=== PATIENT | female | born 1940 | race Caucasian/White ===

== ENCOUNTER 2017-10-31 10:45 | Observation (INO) | payer OTHER ==
[~2017-10-31] VITALS: Ht 160 cm; Wt 50.5 kg
[2017-10-31] MEDS ORDERED: SODIUM CHLORIDE 0.9% 1000ML 1,000 ML IV STA (10:56)
[2017-10-31 11:30] LABS: BASOPHILS % 0.6 % (0.0-1.0); EOSINOPHILS # (AUTO) 0.1 (0.0-0.4); EOSINOPHILS % 1.4 % (0.0-6.0); HEMATOCRIT 39.8 % (34.2-44.1); HEMOGLOBIN 13.1 g/dL (12.0-16.0); LYMPHOCYTES # (AUTO) 2.1 (1.0-3.2); LYMPHOCYTES % 40.3 % (18.0-39.1); MEAN CORPUSCULAR HEMOGLOBIN 28.5 pg (28-32); MEAN CORPUSCULAR HGB CONC 32.9 g/dL (31-35); MEAN CORPUSCULAR VOLUME 86.7 fL (81-99); MONOCYTES # (AUTO) 0.6 (0.2-0.8); MONOCYTES % 11.7 % (4.4-11.3); NEUTROPHILS # (AUTO) 2.3 (2.1-6.9); NEUTROPHILS % 45.8 % (38.7-80.0); PLATELET COUNT 196 x10e3/uL (140-360); RED BLOOD COUNT 4.59 x10e6/uL (3.6-5.1); RED CELL DISTRIBUTION WIDTH 13.7 % (11.7-14.4)
--- NOTE | 2017-10-31 11:33 | Diagnostic Imaging Report ---
PROCEDURE:CHEST SINGLE (PORTABLE) TECHNIQUE:Portable AP chest INDICATION:Weakness COMPARISON:None. FINDINGS: Symmetric hyperinflation. Architectural changes in the upper lobes bilaterally. No focal airspace disease. No pleural effusions. Normal heart size. Calcification of the aortic arch. Intact skeleton. CONCLUSION: Findings of emphysema. No evidence of pneumonia. Dictated by: Tunde Patel M.D. on 10/31/2017 at 11:34 Electronically approved by: Tunde Patel M.D. on 10/31/2017 at 11:34
[2017-10-31 11:42] LABS: ALANINE AMINOTRANSFERASE 20 IU/L (0-55); ALBUMIN 2.9 g/dL (3.5-5.0); ALBUMIN/GLOBULIN RATIO 0.8 (0.8-2.0); ALKALINE PHOSPHATASE 56 IU/L (40-150); BLOOD UREA NITROGEN 24 mg/dL (7-26); BUN/CREATININE RATIO 38 (6-25); CALCIUM 9.2 mg/dL (8.4-10.2); CARBON DIOXIDE 31 mmol/L (22-29); CHLORIDE 100 mmol/L (98-107); CREATINE KINASE 39 IU/L (29-168); CREATININE, SERUM 0.64 mg/dL (0.57-1.11); EST GLOMERULAR FILTRATION RATE > 60 ML/MIN (60-); GLUCOSE 118 mg/dL (74-118); SODIUM 139 mmol/L (136-145)
[2017-10-31 11:58] LABS: BACTERIA,URINE MANY /HPF; BILIRUBIN,URINE NEGATIVE (NEGATIVE); CLARITY,URINE CLOUDY (CLEAR); COLOR,URINE YELLOW (YELLOW); EPITHELIAL CELLS,URINE FEW /LPF; KETONES,URINE NEGATIVE (NEGATIVE); LEUKOCYTE ESTERASE ,URINE 1+ (NEGATIVE); NITRITE,URINE POSITIVE (NEGATIVE); PROTEIN,URINE DIPSTICK NEGATIVE (NEGATIVE); RBC,URINE 0-5 /HPF (0-5); URINE UROBILINOGEN 0.2 mg/dL (0.2 - 1)
[2017-10-31 12:03] LABS: THYROID STIMULATING HORMONE 2.074 uIU/mL (0.350-4.940)
[2017-10-31] MEDS ORDERED: CEFTRIAXONE SOD 1 GM VIAL IV SCH (12:30)
[2017-10-31] MEDS ORDERED: POTASSIUM CHLORIDE IV SCH (12:46)
[2017-10-31] MEDS ORDERED: SODIUM CHLORIDE 0.9% IV SCH (12:46)
[2017-10-31] MEDS ORDERED: ONDANSETRON HCL INJ 2 MG/ML VIAL IV PRN (13:00)
[2017-10-31] MEDS ORDERED: ONDANSETRON HCL 4 MG ORAL DISINTEGRATING TAB SL PRN (13:00)
--- OUTSIDE RECORDS SUMMARY | 2017-10-31 13:16 | XMS REPORT ---
Author [facility] Address Unknown Phone Unavailable Care Team Providers Care Environmental Technology Professor Name Role Phone SHAHZAD SHANNON Unavailable Unavailable Problems This patient has no known problems. Allergies, Adverse Reactions, Alerts This patient has no known allergies or adverse reactions. Medications This patient has no known medications. Results Test Description Test Time Test Comments Text Results Atomic Results Result Comments CHEST SINGLE (PORTABLE) [place] [address] Patient Name: MAMTA PATEL MR #: [id number] : 1940 Age/Sex: 77/F Req #: [id number] Adm Physician: Ordered by: SHAHZAD SHANNON MD Report #: [id number] Location: ER Room/Bed: Procedure: [id number] DX/CHEST SINGLE (PORTABLE) Exam Date: 10/31/17 Exam Time: 1100 REPORT STATUS: Signed PROCEDURE: CHEST SINGLE (PORTABLE) TECHNIQUE: Portable AP chest INDICATION: Weakness COMPARISON: None. FINDINGS: Symmetric hyperinflation. Architectural changes in the upper lobes bilaterally. No focal airspace disease. No pleural effusions. Normal heart size. Calcification of the aortic arch. Intact skeleton. CONCLUSION: Findings of emphysema. No evidence of pneumonia. Dictated by: May Patel M.D. on at 11:34 Electronically approved by: May Patel M.D. on 10/31/2017 at 11:34 Dictated By: MAY PATEL MD [id number] Transcribed By: ADRIANA on 10/31/17 1134 COPY TO: SHAHZAD SHANNON MD
[2017-10-31] MEDS: KCL 20MEQ/.9 SOD CHL 1,000 ML IV SCH (15:08)
[2017-10-31] MEDS ORDERED: POTASSIUM CHLORIDE 20 MEQ TAB CR PO STA (15:37)
[2017-10-31 16:30] VITALS: BP 115/74
[2017-10-31 17:37] VITALS: BP 105/47
[2017-10-31] MEDS: ACETAMINOPHEN 325 MG TAB PO PRN (19:24)
[2017-10-31 19:34] VITALS: BP 105/47
[2017-10-31 19:35] VITALS: BP 108/50
[2017-10-31] MEDS ORDERED: SERTRALINE HCL100 MG PO (19:41)
[2017-10-31] MEDS ORDERED: NORCO 7.5-3251 EACH PO (19:41)
[2017-10-31] MEDS ORDERED: HYDROCHLOROTHIA25 MG (19:41)
[2017-10-31] MEDS ORDERED: LEVOTHYROXINE75 MCG PO (19:41)
[2017-10-31] MEDS ORDERED: LISINOPRIL10 MG PO (19:41)
[2017-11-01] MEDS: KCL 20MEQ/.9 SOD CHL 1,000 ML IV SCH ×2 (01:09→04:30)
[2017-11-01 01:15] VITALS: BP 119/56
[2017-11-01] MEDS: ACETAMINOPHEN 325 MG TAB PO PRN (04:25)
[2017-11-01 04:50] VITALS: BP 130/62
[2017-11-01 06:54] LABS: BASOPHILS % 0.2 % (0.0-1.0); EOSINOPHILS # (AUTO) 0.1 (0.0-0.4); EOSINOPHILS % 1.9 % (0.0-6.0); HEMATOCRIT 36.8 % (34.2-44.1); HEMOGLOBIN 11.9 g/dL (12.0-16.0); LYMPHOCYTES # (AUTO) 2.1 (1.0-3.2); LYMPHOCYTES % 43.9 % (18.0-39.1); MEAN CORPUSCULAR HEMOGLOBIN 28.5 pg (28-32); MEAN CORPUSCULAR HGB CONC 32.3 g/dL (31-35); MONOCYTES # (AUTO) 0.6 (0.2-0.8); MONOCYTES % 11.8 % (4.4-11.3); PLATELET COUNT 200 x10e3/uL (140-360); RED BLOOD COUNT 4.18 x10e6/uL (3.6-5.1); RED CELL DISTRIBUTION WIDTH 13.7 % (11.7-14.4)
[2017-11-01 07:05] LABS: ANION GAP 8.7 mmol/L (8-16); BLOOD UREA NITROGEN 13 mg/dL (7-26); BUN/CREATININE RATIO 24 (6-25); CALCIUM 8.6 mg/dL (8.4-10.2); CARBON DIOXIDE 28 mmol/L (22-29); CHLORIDE 105 mmol/L (98-107); CREATININE, SERUM 0.55 mg/dL (0.57-1.11); EST GLOMERULAR FILTRATION RATE > 60 ML/MIN (60-); GLUCOSE 98 mg/dL (74-118); POTASSIUM 3.7 mmol/L (3.5-5.1); SODIUM 138 mmol/L (136-145)
[2017-11-01 07:30] VITALS: BP 115/59
[2017-11-01] MEDS ORDERED: CEFTRIAXONE SOD 1 GM VIAL IV SCH (09:00)
[2017-11-01 09:53] VITALS: BP 115/59
[2017-11-01] MEDS ORDERED: MAGNESIUM SULFATE 2GM/50ML 50 ML IV ONE (10:15)
[2017-11-01 11:24] VITALS: BP 134/65
[2017-11-01] MEDS ORDERED: CEFTRIAXONE SOD 1 GM VIAL IM ONE (15:00)
[2017-11-01 15:24] VITALS: BP 126/59
== END 2017-11-01 17:42 | disposition home or self-care (01) ==
LOC: ER 10:45 → ERHOLD 13:13 → IMCU 15:35
PROVIDERS: ADMIT Internal Medicine; ATTEND Internal Medicine
DX: E87.6 Hypokalemia (principal); J44.9 Chronic obstructive pulmonary disease, unspecified; R55 Syncope and collapse; N10 Acute pyelonephritis; E86.0 Dehydration; E03.9 Hypothyroidism, unspecified; J06.9 Acute upper respiratory infection, unspecified; E83.42 Hypomagnesemia
CPT/HCPCS: 36415 ×2; 71045; 80048; 80053; 81001; 82550; 82553; 83735; 84443; 84484; 85025 ×2; 87040; 87086; 87186; 87400; 93005; 99284; G0378 ×2; J0696 ×2; J7030

== ENCOUNTER 2022-08-07 10:35 | Emergency (ER) | payer OTHER ==
[~2022-08-07] VITALS: Ht 160 cm; Wt 50.3 kg
[~2022-08-07 10:35] MED LIST: HYDROCHLOROTHIA25 MG; LEVOTHYROXINE75 MCG PO; LISINOPRIL10 MG PO; NORCO 7.5-3251 EACH PO; SERTRALINE HCL100 MG PO
[2022-08-07] MEDS ORDERED: HYDRALAZINE HCL 20 MG/ML VIAL IV STA (10:48)
[2022-08-07] MEDS ORDERED: CRESTOR10 MG PO (10:57)
[2022-08-07] MEDS ORDERED: METOPROLOL TART25 MG PO (10:57)
[2022-08-07] MEDS ORDERED: TRAZODONE HCL50 MG PO (10:57)
[2022-08-07 11:16] LABS: BASOPHILS % 0.4 % (0.0-1.0); EOSINOPHILS # (AUTO) 0.1 (0.0-0.4); EOSINOPHILS % 1.2 % (0.0-6.0); HEMATOCRIT 52.3 % (34.2-44.1); LYMPHOCYTES # (AUTO) 1.6 (1.0-3.2); MEAN CORPUSCULAR HEMOGLOBIN 28.4 pg (28-32); MEAN CORPUSCULAR HGB CONC 28.7 g/dL (31-35); MEAN CORPUSCULAR VOLUME 99.1 fL (81-99); MONOCYTES # (AUTO) 0.6 (0.2-0.8); MONOCYTES % 7.7 % (4.4-11.3); NEUTROPHILS # (AUTO) 5.3 (2.1-6.9); NEUTROPHILS % 69.4 % (38.7-80.0); PLATELET COUNT 244 x10e3/uL (140-360); RED BLOOD COUNT 5.28 x10e6/uL (3.6-5.1); RED CELL DISTRIBUTION WIDTH 13.1 % (11.7-14.4)
[2022-08-07 11:31] LABS: ANION GAP 15.5 mmol/L (8-16); CALCIUM 10.5 mg/dL (8.4-10.2); CREATININE, SERUM 0.62 mg/dL (0.57-1.11); POTASSIUM 4.5 mmol/L (3.5-5.1)
[2022-08-07 11:47] LABS: FREE THYROXINE INDEX 2.3702 (1.4-3.8); THYROID STIMULATING HORMONE 4.243 uIU/mL (0.350-4.940)
[2022-08-07] MEDS ORDERED: AMLODIPINE BESYL5 MG PO (12:18)
== END 2022-08-07 12:24 | disposition home or self-care (01) ==
LOC: ER 10:38
DX: R06.02 Shortness of breath (principal); R00.2 Palpitations; I10 Essential (primary) hypertension; E03.9 Hypothyroidism, unspecified; F32.A Depression, unspecified; R94.31 Abnormal electrocardiogram [ECG] [EKG]; Z20.822 Contact with and (suspected) exposure to COVID-19
CPT/HCPCS: 36415; 71045; 80053; 83880; 84436; 84443; 84479; 84484; 85025; 93005; 99284; J0360; U0002

== ENCOUNTER 2024-02-23 03:44 | Inpatient (IN) | payer MEDICARE, OTHER ==
[~2024-02-23] VITALS: Ht 160 cm; Wt 50.3 kg
[2024-02-23] VITALS (8 sets, daily range): BP systolic 107–129; BP diastolic 57–64; PULSE 54–95; RESP 17–19; TEMP 97.6–98.6; O2SAT 96–99
[~2024-02-23 03:44] MED LIST changes: +AMLODIPINE BESYL5 MG PO; +CRESTOR10 MG PO; +METOPROLOL TART25 MG PO; +TRAZODONE HCL50 MG PO
[2024-02-23 04:55] LABS: BASOPHILS % 0.3 % (0.0-1.0); EOSINOPHILS # (AUTO) 0.1 (0.0-0.4); EOSINOPHILS % 1.4 % (0.0-6.0); HEMATOCRIT 42.1 % (34.2-44.1); HEMOGLOBIN 12.9 g/dL (12.0-16.0); LYMPHOCYTES % 24.8 % (18.0-39.1); MEAN CORPUSCULAR HEMOGLOBIN 29.4 pg (28-32); MEAN CORPUSCULAR HGB CONC 30.6 g/dL (31-35); MEAN CORPUSCULAR VOLUME 95.9 fL (81-99); MONOCYTES # (AUTO) 0.7 (0.2-0.8); NEUTROPHILS # (AUTO) 5.1 (2.1-6.9); NEUTROPHILS % 63.9 % (38.7-80.0); PLATELET COUNT 228 x10e3/uL (140-360); RED BLOOD COUNT 4.39 x10e6/uL (3.6-5.1); RED CELL DISTRIBUTION WIDTH 13.7 % (11.7-14.4)
[2024-02-23] MEDS: Morphine 2mg Syringe 2 MG/ML SYR IV PRN (05:11)
[2024-02-23] MEDS: ONDANSETRON HCL INJ 2MG/ML 2ML 2 MG/ML VIAL IV PRN (05:11)
[2024-02-23 05:14] LABS: ALBUMIN 3.5 g/dL (3.5-5.0); ALBUMIN/GLOBULIN RATIO 1.1 (0.8-2.0); ANION GAP 13.3 mmol/L (8-16); BILIRUBIN,TOTAL 0.3 mg/dL (0.2-1.2); CALCIUM 9.8 mg/dL (8.4-10.2); CREATININE, SERUM 0.78 mg/dL (0.57-1.11); POTASSIUM 3.3 mmol/L (3.5-5.1); TOTAL PROTEIN 6.7 g/dL (6.5-8.1)
[2024-02-23 05:20] LABS: TROPONIN I 0.009 ng/mL (0-0.300)
[2024-02-23 05:39] LABS: BILIRUBIN,URINE NEGATIVE (NEGATIVE); CLARITY,URINE CLEAR (CLEAR); COLOR,URINE YELLOW (YELLOW); GLUCOSE, URINE NEGATIVE (NEGATIVE); KETONES,URINE NEGATIVE (NEGATIVE); LEUKOCYTE ESTERASE ,URINE NEGATIVE (NEGATIVE); NITRITE,URINE NEGATIVE (NEGATIVE); PH,URINE 6 (5 - 7); PROTEIN,URINE DIPSTICK NEGATIVE (NEGATIVE); URINE UROBILINOGEN 0.2 mg/dL (0.2 - 1)
[2024-02-23 05:41] LABS: BACTERIA,URINE FEW /HPF; EPITHELIAL CELLS,URINE FEW /LPF
[2024-02-23] MEDS ORDERED: DOCUSATE SODIUM 100 MG CAP PO PRN (07:00)
[2024-02-23] MEDS ORDERED: HYDROCODONE/APAP 5MG-325MG TAB PO PRN (07:00)
[2024-02-23] MEDS ORDERED: MAGNESIUM/ALUMINUM/SIMETHICONE 30 ML UDC PO PRN (07:00)
[2024-02-23] MEDS ORDERED: HYDRALAZINE HCL 20 MG/ML VIAL IV PRN (07:00)
[2024-02-23] MEDS ORDERED: GUAIFENESIN/DEXTROMETHORPHAN LIQD 5 ML UDC PO PRN (07:00)
[2024-02-23] MEDS: ACETAMINOPHEN 325 MG TAB PO PRN (08:15)
[2024-02-23] MEDS: LEVOTHYROXINE SODIUM 75 MCG TAB PO SCH (08:16)
[2024-02-23] MEDS: SODIUM CHLORIDE 0.9% 1000ML 1,000 ML IV SCH (08:16)
[2024-02-23] MEDS: POTASSIUM CHLORIDE 20 MEQ TAB CR PO STA (08:16)
[2024-02-23] MEDS: MULTIVITAMINS/MINERALS TAB PO SCH (08:25)
[2024-02-23] MEDS: METOPROLOL TARTRATE 25 MG TAB PO SCH (08:26)
[2024-02-23] MEDS ORDERED: PROPOFOL IV EMULSION 10 MG/ML 20 ML VIAL ONE (12:16)
[2024-02-23] MEDS ORDERED: ROCURONIUM BROMIDE 10 MG/ML 5ML VIAL IV ONE (12:16)
[2024-02-23] MEDS ORDERED: LIDOCAINE HCL 2% LOCAL INJ 5 ML SDV VIAL INJ ONE (12:16)
[2024-02-23] MEDS ORDERED: FENTANYL CITRATE/PF 100MCG/2 ML INJ ONE (12:34)
[2024-02-23 15:33] LABS: TROPONIN I 0.008 ng/mL (0-0.300)
[2024-02-23] MEDS: TRAMADOL HCL 50 MG TAB PO PRN (18:48)
[2024-02-23] MEDS: SIMVASTATIN 20 MG TAB PO SCH (20:54)
[2024-02-24 05:59] LABS: BASOPHILS % 0.4 % (0.0-1.0); EOSINOPHILS # (AUTO) 0.1 (0.0-0.4); EOSINOPHILS % 0.7 % (0.0-6.0); HEMATOCRIT 41.3 % (34.2-44.1); HEMOGLOBIN 12.7 g/dL (12.0-16.0); LYMPHOCYTES # (AUTO) 1.7 (1.0-3.2); LYMPHOCYTES % 17.5 % (18.0-39.1); MEAN CORPUSCULAR HEMOGLOBIN 29.5 pg (28-32); MEAN CORPUSCULAR HGB CONC 30.8 g/dL (31-35); MONOCYTES # (AUTO) 0.8 (0.2-0.8); MONOCYTES % 8.7 % (4.4-11.3); NEUTROPHILS % 72.5 % (38.7-80.0); PLATELET COUNT 195 x10e3/uL (140-360); RED CELL DISTRIBUTION WIDTH 13.8 % (11.7-14.4); WHITE BLOOD COUNT 9.66 x10e3/uL (4.8-10.8)
[2024-02-24 07:36] LABS: ALBUMIN 3.1 g/dL (3.5-5.0); BILIRUBIN,TOTAL 0.6 mg/dL (0.2-1.2); CALCIUM 9.1 mg/dL (8.4-10.2); CREATININE, SERUM 0.65 mg/dL (0.57-1.11); POTASSIUM 3.5 mmol/L (3.5-5.1); TOTAL PROTEIN 6.1 g/dL (6.5-8.1)
[2024-02-24 08:00] VITALS: BP 129/72; PULSE 70; RESP 15; TEMP 97.8; O2SAT 97
[2024-02-24 08:48] VITALS: BP 129/72; PULSE 70; RESP 15; TEMP 97.8; O2SAT 97
[2024-02-24] MEDS: FENTANYL CITRATE/PF 100MCG/2 ML INJ ONE (12:00)
[2024-02-24] MEDS ORDERED: ONDANSETRON HCL INJ 2MG/ML 2ML 2 MG/ML VIAL ONE (12:08)
[2024-02-24] MEDS ORDERED: SEVOFLURANE INHAL SOLN 250 ML PEN BTL ONE (12:08)
[2024-02-24] MEDS ORDERED: PHENYLEPHRINE HCL 1% 10 MG/ML VIAL ONE (12:08)
[2024-02-24] MEDS ORDERED: NEOSTIGMINE 1 MG/ML 10ML VIAL ONE (12:08)
[2024-02-24] MEDS ORDERED: DEXAMETHASONE SOD PHOS INJ 4 MG/ML SDV ONE (12:08)
[2024-02-24] MEDS ORDERED: GLYCOPYRROLATE INJ 0.2 MG/ML VIAL ONE (12:08)
[2024-02-24] MEDS: HYDROMORPHONE 1MG/1ML INJ ONE (12:15)
[2024-02-24 12:45] VITALS: BP 124/62; PULSE 82; RESP 18; TEMP 98; O2SAT 98
[2024-02-24 14:59] LABS: ANION GAP 15.5 mmol/L (8-16)
[2024-02-24 20:00] VITALS: BP 115/65; PULSE 70; RESP 17; TEMP 98.7; O2SAT 100
[2024-02-25] VITALS (7 sets, daily range): BP systolic 102–161; BP diastolic 45–74; PULSE 59–87; RESP 17–18; TEMP 97.4–98.8; O2SAT 95–100
[2024-02-25] MEDS: MELATONIN 3 MG TAB PO PRN (01:07)
[2024-02-25 06:37] LABS: BASOPHILS % 0.1 % (0.0-1.0); EOSINOPHILS % 0.1 % (0.0-6.0); HEMATOCRIT 31.3 % (34.2-44.1); HEMOGLOBIN 9.4 g/dL (12.0-16.0); LYMPHOCYTES # (AUTO) 1.2 (1.0-3.2); LYMPHOCYTES % 13.1 % (18.0-39.1); MEAN CORPUSCULAR HEMOGLOBIN 29.4 pg (28-32); MEAN CORPUSCULAR VOLUME 97.8 fL (81-99); MONOCYTES # (AUTO) 0.8 (0.2-0.8); MONOCYTES % 9.2 % (4.4-11.3); NEUTROPHILS % 76.9 % (38.7-80.0); PLATELET COUNT 147 x10e3/uL (140-360); RED CELL DISTRIBUTION WIDTH 13.7 % (11.7-14.4); WHITE BLOOD COUNT 9.06 x10e3/uL (4.8-10.8)
[2024-02-25 07:07] LABS: ANION GAP 8.7 mmol/L (8-16); CALCIUM 8.5 mg/dL (8.4-10.2); CREATININE, SERUM 0.58 mg/dL (0.57-1.11); POTASSIUM 3.7 mmol/L (3.5-5.1)
[2024-02-25 07:41] LABS: TROPONIN I 0.004 ng/mL (0-0.300)
[2024-02-26] VITALS (8 sets, daily range): BP systolic 101–123; BP diastolic 47–61; PULSE 65–92; RESP 17–20; TEMP 97.9–98.8; O2SAT 93–100
[2024-02-26 07:12] LABS: BASOPHILS % 0.2 % (0.0-1.0); EOSINOPHILS # (AUTO) 0.1 (0.0-0.4); EOSINOPHILS % 0.9 % (0.0-6.0); HEMATOCRIT 31.6 % (34.2-44.1); HEMOGLOBIN 9.4 g/dL (12.0-16.0); LYMPHOCYTES # (AUTO) 1.2 (1.0-3.2); LYMPHOCYTES % 14.1 % (18.0-39.1); MEAN CORPUSCULAR HEMOGLOBIN 28.7 pg (28-32); MEAN CORPUSCULAR HGB CONC 29.7 g/dL (31-35); MEAN CORPUSCULAR VOLUME 96.6 fL (81-99); MONOCYTES # (AUTO) 0.9 (0.2-0.8); MONOCYTES % 10.6 % (4.4-11.3); NEUTROPHILS # (AUTO) 6.4 (2.1-6.9); NEUTROPHILS % 73.9 % (38.7-80.0); PLATELET COUNT 152 x10e3/uL (140-360); RED BLOOD COUNT 3.27 x10e6/uL (3.6-5.1); RED CELL DISTRIBUTION WIDTH 13.5 % (11.7-14.4); WHITE BLOOD COUNT 8.66 x10e3/uL (4.8-10.8)
[2024-02-26] MEDS: DOCUSATE SODIUM 100 MG CAP PO SCH (16:54)
[2024-02-26] MEDS: Morphine 2mg Syringe 2 MG/ML SYR IV PRN (19:39)
[2024-02-27] VITALS: BP 145/61; PULSE 72; RESP 18; TEMP 97.6; O2SAT 100
[2024-02-27 04:00] VITALS: BP 131/83; PULSE 72; RESP 18; TEMP 98; O2SAT 100
[2024-02-27 07:40] VITALS: BP 128/62; PULSE 63; RESP 18; TEMP 97.8; O2SAT 96
[2024-02-27 08:13] VITALS: BP 128/62; PULSE 63; RESP 18; TEMP 97.8; O2SAT 96
[2024-02-27] MEDS: POLYETHYLENE GLYCOL 3350 17 GM PACK PO PRN (09:48)
[2024-02-27] MEDS ORDERED: Tylenol #3 PO (11:31)
[2024-02-27] MEDS ORDERED: COLACE100 M1 PO (11:32)
[2024-02-27] MEDS ORDERED: ASPIRIN EC81 MG PO (11:35)
[2024-02-27 12:14] VITALS: BP 126/66; PULSE 60; RESP 18; TEMP 97.9; O2SAT 96
== END 2024-02-27 14:02 | disposition home health service (06) | DRG 481 ==
LOC: ER 03:47 → ERHOLD 04:12 → MED/SURG3 05:45
PROVIDERS: ADMIT Internal Medicine Critical Care Medicine; ATTEND Internal Medicine Critical Care Medicine
PROC: 0QS606Z Reposition Right Upper Femur with Intramedullary Internal Fixation Device, Open Approach (ICD-10-PCS; principal; 2024-02-24 09:59)
DX: S72.141A Displaced intertrochanteric fracture of right femur, initial encounter for closed fracture (principal); D62 Acute posthemorrhagic anemia; E78.5 Hyperlipidemia, unspecified; I10 Essential (primary) hypertension; F32.A Depression, unspecified; R53.1 Weakness; E89.0 Postprocedural hypothyroidism; W18.39XA Other fall on same level, initial encounter; Z79.890 Hormone replacement therapy; Z88.5 Allergy status to narcotic agent; Z90.710 Acquired absence of both cervix and uterus; F17.210 Nicotine dependence, cigarettes, uncomplicated; Y92.009 Unspecified place in unspecified non-institutional (private) residence as the place of occurrence of the external cause
CPT/HCPCS: 36415; 51700; 76000; 80048; 80053; 81001; 82550; 84484; 85025; 93005; 93306; 99284; C1713; J0690; J1100; J1170; J2001; J2270; J2371; J2405; J2710; J7030

== ENCOUNTER 2024-02-29 11:30 | Emergency (ER) | payer MEDICARE ==
[~2024-02-29] VITALS: Ht 160 cm; Wt 50.3 kg
[~2024-02-29 11:30] MED LIST changes: +ASPIRIN EC81 MG PO; +COLACE100 M1 PO; +Tylenol #3 PO
[2024-02-29 11:35] VITALS: PULSE 72; RESP 13; TEMP 97.1; O2SAT 98
[2024-02-29 12:49] LABS: CLARITY,URINE SL CLOUDY (CLEAR); COLOR,URINE YELLOW (YELLOW); LEUKOCYTE ESTERASE ,URINE NEGATIVE (NEGATIVE); PH,URINE 8.5 (5 - 7)
[2024-02-29 12:50] LABS: BACTERIA,URINE FEW /HPF; BILIRUBIN,URINE NEGATIVE (NEGATIVE); EPITHELIAL CELLS,URINE FEW /LPF; GLUCOSE, URINE NEGATIVE (NEGATIVE); KETONES,URINE NEGATIVE (NEGATIVE); NITRITE,URINE NEGATIVE (NEGATIVE); PROTEIN,URINE DIPSTICK NEGATIVE (NEGATIVE); RBC,URINE 21-50 /HPF (0-5); URINE UROBILINOGEN 0.2 mg/dL (0.2 - 1); WBC,URINE (MAN) 21-50 /HPF (0-5)
[2024-02-29] MEDS ORDERED: CEFDINIR300 MG PO (13:58)
== END 2024-02-29 14:27 | disposition home or self-care (01) ==
LOC: ER 12:33
DX: R30.0 Dysuria (principal); N39.0 Urinary tract infection, site not specified; M19.09 Primary osteoarthritis, other specified site
CPT/HCPCS: 81001; 99282

== ENCOUNTER 2025-02-21 10:12 | Inpatient (IN) | payer MEDICARE ==
[~2025-02-21] VITALS: Ht 157.5 cm; Wt 40.8 kg
[2025-02-21] VITALS (8 sets, daily range): BP systolic 99–163; BP diastolic 65–84; PULSE 75–116; RESP 17–23; TEMP 97.7–98.8; O2SAT 97–100
[~2025-02-21 10:12] MED LIST changes: +CEFDINIR300 MG PO
[2025-02-21 11:10] LABS: BASOPHILS % 0.2 % (0.0-1.0); EOSINOPHILS % 0.0 % (0.0-6.0); LYMPHOCYTES % 11.7 % (18.0-39.1); MONOCYTES % 8.1 % (4.4-11.3); NEUTROPHILS % 79.5 % (38.7-80.0); RED CELL DISTRIBUTION WIDTH 15.9 % (11.7-14.4)
[2025-02-21 11:39] LABS: EST GLOMERULAR FILTRATION RATE 72.0 ML/MIN (>=60)
[2025-02-21] MEDS ORDERED: MECLIZINE HCL 12.5 MG TAB ONE (13:50)
[2025-02-21] MEDS: MECLIZINE HCL 12.5 MG TAB PO ONE (14:02)
[2025-02-21] MEDS ORDERED: IOPAMIDOL 370 MG/ML 100 ML INFUS..BTL INJ ONE (14:08)
[2025-02-21] MEDS: DILTIAZEM HCL 5 MG/ML 5 ML VIAL IV STA (14:18)
[2025-02-21] MEDS: METOPROLOL TARTRATE 25 MG TAB PO ONE (15:53)
[2025-02-21] MEDS: METOPROLOL TARTRATE 25 MG TAB PO SCH (17:00)
[2025-02-21] MEDS: ENOXAPARIN SOD INJ 40 MG/0.4 ML SYR SC SCH (22:02)
[2025-02-21] MEDS: CRESTOR 10MG PO SCH (22:02)
[2025-02-22] VITALS (10 sets, daily range): BP systolic 97–129; BP diastolic 61–81; PULSE 68–111; RESP 17–20; TEMP 97.1–98.9; O2SAT 93–100
[2025-02-22] MEDS: LEVOTHYROXINE SODIUM 75 MCG TAB PO SCH (06:13)
[2025-02-22 07:01] LABS: BASOPHILS % 0.2 % (0.0-1.0); EOSINOPHILS % 0.5 % (0.0-6.0); LYMPHOCYTES % 17.8 % (18.0-39.1); MONOCYTES % 8.8 % (4.4-11.3); NEUTROPHILS % 72.2 % (38.7-80.0); RED CELL DISTRIBUTION WIDTH 16.1 % (11.7-14.4)
[2025-02-22 07:40] LABS: CHOL/HDL RATIO 2.8 (3.0-3.6); EST GLOMERULAR FILTRATION RATE 80.0 ML/MIN (>=60); LDL CHOLESTEROL 40.0 MG/DL (60-130)
[2025-02-22] MEDS ORDERED: ACETAMINOPHEN 325 MG TAB PO PRN (12:15)
[2025-02-22] MEDS: AMIODARONE HCL 200 MG TAB PO ONE (16:25)
[2025-02-22] MEDS: METOPROLOL TARTRATE 50 MG TAB PO SCH (16:26)
[2025-02-22] MEDS: SERTRALINE HCL 100 MG TAB PO SCH (20:15)
[2025-02-22] MEDS: TRAZODONE HCL 50 MG TAB PO SCH (20:16)
[2025-02-23] VITALS (10 sets, daily range): BP systolic 95–138; BP diastolic 52–84; PULSE 61–117; RESP 15–21; TEMP 96–98.6; O2SAT 93–99
[2025-02-23] MEDS: FUROSEMIDE INJ 10 MG/ML 4 ML VIAL IV ONE (10:36)
[2025-02-23] MEDS: POTASSIUM CHLORIDE 10MEQ EA PO ONE (10:37)
[2025-02-24] VITALS (8 sets, daily range): BP systolic 97–130; BP diastolic 58–91; PULSE 60–120; RESP 18; TEMP 97.1–98.6; O2SAT 95–100
[2025-02-24 03:23] LABS: LEUKOCYTE ESTERASE ,URINE NEGATIVE (NEGATIVE); PROTEIN,URINE DIPSTICK 1+ (NEGATIVE); URINE UROBILINOGEN 0.2 mg/dL (0.2 - 1)
[2025-02-24 03:26] LABS: EPITHELIAL CELLS,URINE FEW /LPF
[2025-02-24 07:36] LABS: EST GLOMERULAR FILTRATION RATE 82.0 ML/MIN (>=60)
[2025-02-24] MEDS: FUROSEMIDE INJ 10 MG/ML 4 ML VIAL IV SCH (09:00)
[2025-02-24] MEDS: POTASSIUM CHLORIDE 10MEQ EA PO SCH (09:00)
[2025-02-24] MEDS: GENTAMICIN SULFATE 40 MG/ML 2 ML VIAL ONE ×2 (12:29→12:31)
[2025-02-24] MEDS: SODIUM CHLORIDE 0.9% 500ML 500 ML ONE ×2 (12:29→12:31)
[2025-02-24] MEDS: IOPAMIDOL 610MG/1ML 300 MG/ML VIAL IV ONE (12:30)
[2025-02-24] MEDS: SODIUM BICARBONATE 8.4% SYRING 50 ML ONE (12:30)
[2025-02-24] MEDS: Vancomycin IV 1 GM VIAL ONE ×2 (12:30→12:31)
[2025-02-24] MEDS: LIDOCAINE HCL 2% LOCAL 20 ML VIAL ONE (12:30)
[2025-02-24] MEDS: IOPAMIDOL 370 MG/ML 100 ML INFUS..BTL INJ ONE (12:31)
[2025-02-24] MEDS: SODIUM CHLORIDE 0.9% 250ML 250 ML ONE ×2 (12:31→12:32)
[2025-02-24] MEDS: SODIUM CHLORIDE 0.9% 1000ML 2,000 ML ONE (12:31)
[2025-02-24] MEDS: MIDAZOLAM HCL 2 MG/2 ML VIAL ONE (12:32)
[2025-02-24] MEDS: FENTANYL CITRATE/PF 100MCG/2 ML INJ ONE (12:32)
[2025-02-24] MEDS ORDERED: ACETAMINOPHEN 325 MG TAB PO PRN (19:00)
[2025-02-25 04:42] VITALS: BP 124/78; PULSE 91; RESP 16; TEMP 98.4; O2SAT 96
[2025-02-25 06:37] LABS: BASOPHILS % 0.2 % (0.0-1.0); EOSINOPHILS % 1.1 % (0.0-6.0); LYMPHOCYTES % 15.5 % (18.0-39.1); MONOCYTES % 11.6 % (4.4-11.3); NEUTROPHILS % 71.3 % (38.7-80.0); RED CELL DISTRIBUTION WIDTH 15.2 % (11.7-14.4)
[2025-02-25 07:00] VITALS: BP 101/76; PULSE 116; RESP 16; TEMP 97.7; O2SAT 99
[2025-02-25 07:06] LABS: EST GLOMERULAR FILTRATION RATE 88.0 ML/MIN (>=60)
[2025-02-25 07:19] LABS: PHOSPHORUS 2.5 MG/DL (2.3-4.7)
[2025-02-25 11:30] VITALS: BP 110/75; PULSE 104; RESP 16; TEMP 97.9; O2SAT 98
[2025-02-25] MEDS: METOPROLOL SUCCINATE 50 MG TAB XL PO SCH (12:31)
[2025-02-25] MEDS: DOXYCYCLINE HYCLATE TABLET 100 MG TAB PO SCH (16:31)
[2025-02-25 17:13] VITALS: BP 97/62; PULSE 107; RESP 16; TEMP 99.3; O2SAT 98
[2025-02-25 20:00] VITALS: BP 107/78; PULSE 85; RESP 18; TEMP 97.6; O2SAT 96
[2025-02-25 21:00] VITALS: BP 107/78; PULSE 85; RESP 18; TEMP 97.6; O2SAT 96
[2025-02-26] VITALS (10 sets, daily range): BP systolic 105–133; BP diastolic 56–98; PULSE 66–92; RESP 15–22; TEMP 97.5–98.2; O2SAT 93–99
[2025-02-26 06:21] LABS: EST GLOMERULAR FILTRATION RATE 92.0 ML/MIN (>=60)
[2025-02-26] MEDS ORDERED: BISACODYL 10 MG SUPP PR PRN (08:45)
[2025-02-26] MEDS ORDERED: MAGNESIUM HYDROXIDE 30 ML UDC PO PRN (08:45)
[2025-02-26] MEDS ORDERED: POTASSIUM CHLORIDE 20 MEQ TAB CR PO STA (09:00)
[2025-02-26] MEDS: SENNA-S TABLET PO SCH (09:00)
[2025-02-26] MEDS: POLYETHYLENE GLYCOL 3350 17 GM PACK PO SCH (09:00)
[2025-02-26] MEDS: POTASSIUM CHLORIDE 10MEQ EA PO SCH (10:04)
[2025-02-26] MEDS: MAGNESIUM HYDROXIDE 30 ML UDC PO ONE (10:05)
[2025-02-26] MEDS: BISACODYL 10 MG SUPP PR ONE (10:05)
[2025-02-27] VITALS: BP 135/80; PULSE 77; RESP 17; TEMP 97.6; O2SAT 98
[2025-02-27 04:00] VITALS: BP 92/79; PULSE 97; RESP 18; TEMP 98.1; O2SAT 100
[2025-02-27 07:16] LABS: EST GLOMERULAR FILTRATION RATE 86.0 ML/MIN (>=60)
[2025-02-27 07:42] VITALS: PULSE 80; RESP 17; O2SAT 98
[2025-02-27 08:30] VITALS: BP 92/79; PULSE 80; RESP 17; TEMP 98.1; O2SAT 98
[2025-02-27 08:43] VITALS: BP 108/72; PULSE 68; RESP 20; TEMP 97.6; O2SAT 98
[2025-02-27 08:49] VITALS: BP 108/72; PULSE 68
== END 2025-02-27 14:18 | disposition home or self-care (01) | DRG 242 ==
LOC: ER 10:27 → ERHOLD 14:17 → MED/SURG3 15:04 → OBSVTOIN 02-22 12:01
PROVIDERS: ADMIT Internal Medicine; ATTEND Internal Medicine
PROC: 0JH604Z Insertion of Pacemaker, Single Chamber into Chest Subcutaneous Tissue and Fascia, Open Approach (ICD-10-PCS; principal; 2025-02-24)
PROC: 02HK3JZ Insertion of Pacemaker Lead into Right Ventricle, Percutaneous Approach (ICD-10-PCS; 2025-02-24)
DX: I49.5 Sick sinus syndrome (principal); I50.33 Acute on chronic diastolic (congestive) heart failure; J96.20 Acute and chronic respiratory failure, unspecified whether with hypoxia or hypercapnia; I48.92 Unspecified atrial flutter; N39.0 Urinary tract infection, site not specified; J44.1 Chronic obstructive pulmonary disease with (acute) exacerbation; E46 Unspecified protein-calorie malnutrition; I48.19 Other persistent atrial fibrillation; M19.90 Unspecified osteoarthritis, unspecified site; M47.9 Spondylosis, unspecified; E78.5 Hyperlipidemia, unspecified; I12.9 Hypertensive chronic kidney disease with stage 1 through stage 4 chronic kidney disease, or unspecified chronic kidney disease; J43.9 Emphysema, unspecified; N18.9 Chronic kidney disease, unspecified; E03.9 Hypothyroidism, unspecified; R39.15 Urgency of urination; R63.4 Abnormal weight loss; I95.1 Orthostatic hypotension; R53.81 Other malaise; Z63.79 Other stressful life events affecting family and household; Z88.5 Allergy status to narcotic agent; Z79.82 Long term (current) use of aspirin; Z79.2 Long term (current) use of antibiotics; Z79.890 Hormone replacement therapy; Z72.0 Tobacco use; Z87.440 Personal history of urinary (tract) infections
CPT/HCPCS: 33207; 36415; 70450; 70496; 70498; 71045; 71250; 75820; 80048; 80053; 80061; 81001; 83735; 83880; 84100; 84443; 84484; 85025; 93005; 93306; 94799; 99284; C1769; G0378; J0690; J1580; J1650; J1938; J2003; J2250; J3373; J7030; J7040; J7050; Q9967